=== PATIENT | male | born 1955 | race Caucasian/White ===

== ENCOUNTER 2017-06-14 09:15 | Outpatient (CLI) | payer BC ==
--- NOTE | 2017-06-14 11:16 | Diagnostic Imaging Report ---
OPHELIA SELLERS~ [facility] [address] [facility].[address] [id number] ~ ~ ~ ~ Report Submission Date: Jun 14, 2017 9:38:01 AM CDT Patient ~ Study Name: JHON CERDA ~ Date: Jun 14, 2017 9:17:03 AM CDT ~ Modality Type: CR Gender: M ~ Description: CHEST : 57 ~ Institution: [facility] Physician: OPHELIA SELLERS ~ ~ ~ ~ HISTORY: ~62-year-old male smoker with weight loss and fatigue. COMPARISON: None available. TECHNIQUE: 2 views of the chest were performed. FINDINGS: The lungs are hyperexpanded and hyperlucent. ~No pneumothorax, consolidative infiltrates, pleural effusions, or pulmonary edema. ~There are calcified granulomas in the left lung. ~The heart is not enlarged. There is moderate thoracic degenerative disc disease. IMPRESSION: Pulmonary hyperexpansion suggestive of emphysema. No acute intrathoracic process is identified here. ~ Electronically signed on Jun 14, 2017 9:38:01 AM CDT by: Justin BLACKMON
== END 2017-06-14 09:16 ==
LOC: RAD 09:15
PROVIDERS: ATTEND Family Medicine
DX: R63.4 Abnormal weight loss (principal); R53.83 Other fatigue; F17.210 Nicotine dependence, cigarettes, uncomplicated
CPT/HCPCS: 71020